=== PATIENT | male | born 1955 | race Caucasian/White ===

== ENCOUNTER 2018-09-15 08:22 | Emergency (ER) | payer OTHER ==
[2018-09-15 08:32] VITALS: BP 172/72; PULSE 69; TEMP 97.8; BMI 30.7
--- NOTE | 2018-09-15 09:12 | PDOC ---
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 Has had problems with his back recently has never had evaluation. Is not taking any medication for relief. Occurred: reports: just prior to arrival, this morning Severity: reports: moderate Pain Location: reports: back Method of Injury: Yes: unknown Loss of Consciousness: no loss of consciousness Past History - Past Medical History Allergies/Adverse Reactions: Allergies Allergy/AdvReac Type Severity Reaction Status Date / Time No Known Allergies Allergy Verified 09/15/18 08:29 Home Medications: Ambulatory Orders Cyclobenzaprine HCl 10 mg PO Q8H PRN #14 tablet 09/15/18 Naproxen [Naprosyn -] 500 mg PO BID #30 tablet 09/15/18 COPD: No - Immunization History Immunization Up to Date: Yes - Suicide/Smoking/Psychosocial Hx Smoking History: Never smoked Hx Alcohol Use: No Drug/Substance Use Hx: No Substance Use Type: Alcohol Review of Systems - Review of Systems Able to Perform ROS?: Yes Is the patient limited Kyrgyz proficient: Yes Constitutional: Yes: Symptoms Reported, See HPI, Malaise. No: Fever HEENTM: No: Symptoms Reported Musculoskeletal: Yes: Symptoms Reported, See HPI, Back Pain, Muscle Pain Integumentary: No: Symptoms Reported All Other Systems: Reviewed and Negative *Physical Exam - Vital Signs Last Vital Signs Temp Pulse Resp BP Pulse Ox 97.8 F 69 16 172/72 H 99 09/15/18 08:29 09/15/18 08:29 09/15/18 08:29 09/15/18 08:29 09/15/18 08:29 - Physical Exam General Appearance: Yes: Nourished, Appropriately Dressed, Apparent Distress, Mild Distress HEENT: positive: HAYLEY, Normal ENT Inspection, TMs Normal, Pharynx Normal Neck: positive: Supple. negative: Tender Respiratory/Chest: positive: Lungs Clear Gastrointestinal/Abdominal: positive: Soft Musculoskeletal: positive: Normal Inspection, Muscle Spasm (palpable spasm noted to the paravertebral spinous muscles on the right side, no true bone tenderness crepitus or step-offs. Is ambulatory but walks slowly). 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 We'll treat with NSAIDs and cyclobenzaprine *DC/Admit/Observation/Transfer Diagnosis at time of Disposition: Low back strain Qualifiers: Encounter type: initial encounter Qualified Code(s): S39.012A - Strain of muscle, fascia and tendon of lower back, initial encounter - Discharge Dispostion Disposition: HOME Condition at time of disposition: Stable Decision to Admit order: No - Referrals Referrals: Luis Rai MD [Primary Care Provider] - Beny Castro DO [Staff Physician] - - Patient Instructions Printed Discharge Instructions: DI for Back Strain or Sprain Additional Instructions: Rest, no heavy lifting or exercise until pain is resolved Hot soaks to neck and low back as often as possible/hot showers or Jacuzzis No massage or therapy until spasm is gone Continue Naprosyn 500 mg tablet, 1 tablet every 8 hours for the next 3 days then as needed for pain and swelling Cyclobenzaprine 1-10mg every 8 hours as needed for spasm If not significant improvement within 24 hours with medication and rest regime, followup with private physician for change in medications and /or therapy. - Post Discharge Activity Forms/Work/School Notes: Back to Work
== END 2018-09-15 09:21 | disposition home or self-care (01) ==
LOC: JERFT 08:22
DX: S39.012A Strain of muscle, fascia and tendon of lower back, initial encounter (principal); M62.830 Muscle spasm of back; X50.1XXA Overexertion from prolonged static or awkward postures, initial encounter; Y93.H3 Activity, building and construction; Y92.69 Other specified industrial and construction area as the place of occurrence of the external cause; Y99.0 Civilian activity done for income or pay
CPT/HCPCS: 99281-25

== ENCOUNTER 2018-10-16 12:04 | Emergency (ER) | payer OTHER ==
[2018-10-16] MEDS ORDERED: TETRACAINE 0.5% HCL 0.6ML DROPPER.BOTTLE OS ONE (12:44)
--- NOTE | 2018-10-16 12:44 | PDOC ---
Rapid Medical Evaluation Time Seen by Provider: 10/16/18 12:43 Medical Evaluation: Allergies Allergy/AdvReac Type Severity Reaction Status Date / Time No Known Allergies Allergy Verified 09/15/18 08:29 10/16/18 12:43 I have performed a brief in-person evaluation of this patient. The patient presents with a chief complaint of: pain/redness to left eye since yesterday, possible foreign body from work exposure Pertinent physical exam findings: tearing, injected left eye I have ordered the following: tetracaine The patient will proceed to the ED for further evaluation.
[2018-10-16 12:46] VITALS: BP 137/68; PULSE 72; TEMP 98.3; BMI 30.4
[2018-10-16] MEDS ORDERED: FLUORESCEIN NA 1 EA STRIP OS ONE (13:20)
[2018-10-16] MEDS ORDERED: ERYTHROMYCIN 0.5% OPHTHALMIC OINTMENT 3.5 GM TUBE OS ONE (13:50)
[2018-10-16] MEDS ORDERED: ERYTHROMYCIN 0.5% OPHTHALMIC OINTMENT 3.5 GM TUBE ONE (13:58)
--- NOTE | 2018-10-16 14:15 | PDOC ---
History of Present Illness - General Chief Complaint: Foreign Body (FB) Stated Complaint: LT.EYE PAIN Time Seen by Provider: 10/16/18 12:43 History Source: Patient Exam Limitations: No Limitations - History of Present Illness Initial Comments: 10/16/18 14:13 HISTORY OF PRESENT ILLNESS: This is a 63-year-old male presents emergency department for evaluation of foreign body in left eye which started on 10/15. 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 As patient was not performing his job duties at that time he did not have protective care on with the exception of his regular prescription glasses. Patient reports increased pain and foreign body sensation in his left eye with blinking. He denies any change in vision. No recent travel or sick contacts. PAST MEDICAL HISTORY: Denies past medical history SURGICAL HISTORY: Denies ALLERGIES: No known drug allergies REVIEW OF SYSTEMS General/Constitutional: Denies fever or chills. Denies weakness, weight change. HEENT: see HPI Cardiovascular: Denies chest pain or shortness of breath. Respiratory: Denies cough, wheezing, or hemoptysis. Gastrointestinal: Denies nausea, vomiting, diarrhea or constipation. Denies rectal bleeding. Genitourinary: Denies dysuria, frequency, or change in urination. Musculoskeletal: Denies joint or muscle swelling or pain. Denies neck or back pain. Skin and breasts: Denies rash or easy bruising. Neurologic: Denies headache, vertigo, loss of consciousness, or loss of sensation. Psychiatric: Denies depression or anxiety. Endocrine: Denies increased thirst. Denies abnormal weight change. Hematologic/Lymphatic: Denies anemia, easy bleeding, or history of blood clots. Allergic/Immunologic: Denies hives or skin allergy. Denies latex allergy. PHYSICAL EXAM General Appearance: Well-appearing, appropriately dressed. No apparent distress , no intoxication. HEENT: EOMI, PERRLA, normal ENT inspection, normal voice, TMs normal, pharynx normal. No conjunctival pallor. No photophobia, scleral icterus. Visible foreign body presents to the left eye at the 4 o'clock position. Pupils are equal and round. No hyphema present. Respiratory/Chest: Lungs CTAB. No shortness of breath, chest tenderness, respiratory distress, accessory muscle use. No crackles, rales, rhonchi, stridor , wheezing, dullness Cardiovascular: RRR. S1, S2. No JVD, murmur, bradycardia, tachycardia. 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 Fully oriented, alert. Appropriate mood/affect. Motor strength 5/5. No appreciable EOM palsy, facial droop or sensory deficit. Past History - Past Medical History Allergies/Adverse Reactions: Allergies Allergy/AdvReac Type Severity Reaction Status Date / Time No Known Allergies Allergy Verified 09/15/18 08:29 Home Medications: Ambulatory Orders NK [No Known Home Medication] 10/16/18 COPD: No - Immunization History Immunization Up to Date: Yes - Suicide/Smoking/Psychosocial Hx Smoking History: Unknown if ever smoked Have you smoked in the past 12 months: No Information on smoking cessation initiated: No Hx Alcohol Use: No Drug/Substance Use Hx: No Substance Use Type: Alcohol *Physical Exam - Vital Signs Last Vital Signs Temp Pulse Resp BP Pulse Ox 98.3 F 72 16 137/68 100 10/16/18 12:44 10/16/18 12:44 10/16/18 12:44 10/16/18 12:44 10/16/18 12:44 ED Treatment Course - Medications Given in the ED: ED Medications Discontinued Medications Generic Name Dose Route Start Last Admin Trade Name Colette PRN Reason Stop Dose Admin Erythromycin 1 applic 10/16/18 13:50 10/16/18 13:59 Erythromycin 0.5% Eye Ointment OS 10/16/18 13:51 1 applic ONCE ONE Administration Fluorescein Sodium 1 ea 10/16/18 13:20 10/16/18 13:22 Fluorets - OS 10/16/18 13:21 1 ea ONCE ONE Administration Tetracaine HCl 1 drop 10/16/18 12:44 10/16/18 13:22 Tetravisc 0.5% Eye Drops - OS 10/16/18 12:45 1 drop ONCE ONE Administration Medical Decision Making - Medical Decision Making 10/16/18 14:11 A/P: 63-year-old male formed body in left eye Unable to remove foreign body using flush as well as erythromycin ointment Dr. Gonzalez the on-call signal tester is not in his office at this time. Patient referred to Dr. Cool's office for evaluation and treatment. Discharge to Dr. Cool's office *DC/Admit/Observation/Transfer Diagnosis at time of Disposition: Foreign body in eye Qualifiers: Encounter type: initial encounter Laterality: left Qualified Code(s): T15.92XA - Foreign body on external eye, part unspecified, left eye, initial encounter - Discharge Dispostion Disposition: HOME Condition at time of disposition: Stable Decision to Admit order: No - Referrals - Patient Instructions Additional Instructions: Go to Dr. Cool's office right now for immediate ophthalmology appointment. - Post Discharge Activity
== END 2018-10-16 14:14 | disposition home or self-care (01) ==
LOC: JERFT 12:04
DX: T15.82XA Foreign body in other and multiple parts of external eye, left eye, initial encounter (principal); X58.XXXA Exposure to other specified factors, initial encounter; Y93.H3 Activity, building and construction; Y92.69 Other specified industrial and construction area as the place of occurrence of the external cause; Y99.0 Civilian activity done for income or pay
CPT/HCPCS: 99281-25